=== PATIENT | female | born 1970 | race Caucasian/White ===

== ENCOUNTER 2016-08-14 23:59 | Emergency (ER) | payer OTHER ==
--- NOTE | ~2016-08-14 | ER ---
PATIENT'S NAME: GREY DENSON [facility] AGE: 45 Y [address] ROOM: [place] [id number] LOCATION: [facility] ADMIT DATE: 08/14/2016 ER/Outpatient Report DISCHARGE DATE: 08/15/2016 FAMILY PHYSICIAN: Ricardo Graham MD ATTENDING PHYSICIAN: Neymar Holloway Admission date and time are documented on the medical record. I saw the patient at 0015 hours. CHIEF COMPLAINT: Right ear pain. HISTORY OF PRESENT ILLNESS: This patient is a 45-year-old female who started having some right ear pain around 2200 tonight. She has vestibular problems and balance problems because of this right ear. It is especially noticeable while driving. Her personal physician and ENT specialist told her not to drive until this is checked out. She is scheduled to see Neurology on October 01. No drainage from the ear. No fever, chills, or sweats. No coughs, colds, or flus. No chest pain or shortness of breath. No abdominal pain, nausea, vomiting, or diarrhea. No urinary symptomatology. No joint or muscle swelling, redness, or pain. No skin eruptions or rash. No history of neuro changes, psych issues, or endocrine problems. Does have the dizziness, motion problems, but no syncope. No headache, eyes, nose, throat, neck, or spine pain. No fall or trauma. HOME MEDICATIONS: See attached medication list. ALLERGIES: LATEX, AZITHROMYCIN, ROCEPHIN, AND SULFA. SOCIAL HISTORY: Nonsmoker, nondrinker. SIGNIFICANT PAST MEDICAL HISTORY: Scoliosis. OPERATIONS: Back surgery. REVIEW OF SYSTEMS: All systems reviewed by me are negative with the exception of those discussed in the history of present illness. PHYSICAL EXAMINATION: PATIENT'S NAME: GREY DENSON [facility] AGE: 45 Y [address] ROOM: [place], [place] [address] LOCATION: [facility] ADMIT DATE: 08/14/2016 ER/Outpatient Report DISCHARGE DATE: 08/15/2016 FAMILY PHYSICIAN: Ricardo Graham MD ATTENDING PHYSICIAN: Neymar Holloway VITAL SIGNS: Temperature 97.2, tympanic, pulse 96, respirations 18, blood pressure 147/78, and O2 sat on room air is 98%. HEAD: Normocephalic. EYES: Extraocular muscles intact. PERRL. Sclerae and conjunctivae clear, nonicteric. No nystagmus. EARS: Clear TMs bilaterally. No bulging drums. No drainage in the ear canals. NOSE: Clear. THROAT: Clear. Mucous membranes moist. NECK: No nuchal rigidity. No thyromegaly or cervical adenopathy. LUNGS: Clear. HEART: Regular. NEUROVASCULAR: Intact. IMPRESSION: 1. Right ear pain, etiology uncertain. 2. Balance problems. PLAN: The patient was given Decadron 10 mg IM in the emergency room. Started on Valium 2 mg 3 times a day for a week. No work until released by personal physician. Follow up with personal physician as needed. Discussion ensued with the patient concerning my findings and recommendations, she understands. MD PHILOMENA MCCLAIN/modl /[id number] d: 08/15/167 t: 08/21/16 0613, OUTPATIENT REPORT
== END 2016-08-15 00:50 | disposition disaster alternative care site (69) ==
LOC: GMED 23:59
DX: H92.01 Otalgia, right ear (principal); Z91.040 Latex allergy status; Z88.2 Allergy status to sulfonamides; Z88.1 Allergy status to other antibiotic agents; Z98.890 Other specified postprocedural states; Z79.899 Other long term (current) drug therapy
CPT/HCPCS: J1100

== ENCOUNTER 2016-10-09 23:38 | Emergency (ER) | payer OTHER ==
--- NOTE | ~2016-10-09 | ER ---
PATIENT'S NAME: GREY DENSON [facility] AGE: 45 Y [address] ROOM: [place] [id number] LOCATION: ED ADMIT DATE: 10/09/2016 ER/Outpatient Report DISCHARGE DATE: 10/10/2016 FAMILY PHYSICIAN: Ricardo Graham MD ATTENDING PHYSICIAN: Patrick Akbar CHIEF COMPLAINT: Vomiting with upper abdominal discomfort. HISTORY OF PRESENT ILLNESS: The patient notes that shortly after eating lunch today, she developed some upper abdominal discomfort with some vomiting. Her mother came in for evaluation tonight. She thought she better gets this checked out otherwise, since she was here. She denies any symptoms for the last several hours. She is otherwise feeling pretty good at this point in time. She denies any changes in bowel or bladder habits otherwise. She denies any fevers or other concerns. PAST MEDICAL HISTORY: Documented on the record and reviewed by me. SOCIAL HISTORY: Documented on the record and reviewed by me. MEDICATIONS: Documented on the record and reviewed by me. ALLERGIES: DOCUMENTED ON THE RECORD AND REVIEWED BY ME. REVIEW OF SYSTEMS: All systems reviewed and negative except as noted in the HPI. PHYSICAL EXAMINATION: VITAL SIGNS: Blood pressure 186/80, pulse 97, respiratory rate 16, temperature 98.0, SpO2 is 98% on room air. Pain level is "bad." GENERAL: Age appropriate female, sitting upright on a chair in no obvious pain or distress. Smiling and appropriate. NEUROLOGIC: The patient is awake and alert. GCS 15. No focal deficits. No asymmetry on exam. HEENT: Normocephalic, atraumatic. Eyes are PERRL. Oropharynx is clear. NECK: Supple. Trachea is midline. TMs are pearly irwin bilateral. CHEST: Heart is regular rate and rhythm with no murmurs. LUNGS: Clear to auscultation bilateral. No rhonchi, wheezes, or rales. BACK: Nontender to palpation. PATIENT'S NAME: GREY DENSON [facility] AGE: 45 Y [address] ROOM: [place] [address] LOCATION: [facility] ADMIT DATE: 10/09/2016 ER/Outpatient Report DISCHARGE DATE: 10/10/2016 FAMILY PHYSICIAN: Ricardo Graham MD ATTENDING PHYSICIAN: Patrick Akbar ABDOMEN: Soft, nontender, and nondistended. EXTREMITIES: Warm and well perfused. SKIN: Warm, dry, and intact. LABS AND X-RAYS: None. IMPRESSION: Gastritis. EMERGENCY DEPARTMENT COURSE: The patient was seen and evaluated as above. Her presentation is most consistent with food poisoning versus other source of gastritis. Her abdominal exam is benign. Her vital signs are normal. She has had no symptoms for several hours. For this reason, I will not pursue further evaluation for this patient at this time. She will return immediately to the emergency department per agreement, if she has worsening of her symptoms. MD ULISSES DIAZ/liyah /[id number] d: 10/10/16 1153 t: 10/16/16 0922, OUTPATIENT REPORT
== END 2016-10-10 00:49 | disposition disaster alternative care site (69) ==
LOC: GMED 23:38
DX: K29.70 Gastritis, unspecified, without bleeding (principal); Z88.8 Allergy status to other drugs, medicaments and biological substances; Z88.1 Allergy status to other antibiotic agents; Z79.899 Other long term (current) drug therapy; Z98.890 Other specified postprocedural states; Z88.2 Allergy status to sulfonamides; Z91.040 Latex allergy status

== ENCOUNTER → 2016-11-11 | Outpatient (CLI) | payer OTHER | END | disposition disaster alternative care site (69) | LOC: GBCOE 13:17 | DX: Z12.31 Encounter for screening mammogram for malignant neoplasm of breast (principal) | CPT/HCPCS: G0202 ==

== ENCOUNTER → 2016-12-25 | Outpatient (CLI) | payer OTHER | END | disposition disaster alternative care site (69) | LOC: GRAD 14:04 | DX: R51 Headache (principal); R42 Dizziness and giddiness; I67.89 Other cerebrovascular disease; R93.8 Abnormal findings on diagnostic imaging of other specified body structures ==